=== PATIENT | male | born 1975 | race African-American/Black ===

== ENCOUNTER 2022-01-04 08:15 | Outpatient (CLI) | payer OTHER | END 2022-01-04 08:16 | disposition home or self-care (01) | LOC: CSHWCC 08:15 | PROVIDERS: ATTEND Nurse Practitioner Family | DX: T81.89XD Other complications of procedures, not elsewhere classified, subsequent encounter (principal) ==

== ENCOUNTER 2022-01-07 14:55 | Outpatient (CLI) | payer OTHER | END 2022-01-07 14:56 | disposition home or self-care (01) | LOC: CSHWCC 14:55 | PROVIDERS: ATTEND Nurse Practitioner Family | DX: T81.89XD Other complications of procedures, not elsewhere classified, subsequent encounter (principal) ==

== ENCOUNTER 2022-01-10 14:09 | Outpatient (CLI) | payer OTHER | END 2022-01-10 14:10 | disposition home or self-care (01) | LOC: CSHWCC 14:09 | PROVIDERS: ATTEND Nurse Practitioner Family | DX: T81.89XD Other complications of procedures, not elsewhere classified, subsequent encounter (principal) ==

== ENCOUNTER 2022-01-15 14:05 | Outpatient (CLI) | payer OTHER | END 2022-01-15 14:06 | disposition home or self-care (01) | LOC: CSHWCC 14:05 | PROVIDERS: ATTEND Nurse Practitioner Family | DX: T81.89XD Other complications of procedures, not elsewhere classified, subsequent encounter (principal) | CPT/HCPCS: 97605 ==

== ENCOUNTER 2022-01-18 09:57 | Outpatient (CLI) | payer OTHER | END 2022-01-18 09:58 | disposition home or self-care (01) | LOC: CSHWCC 09:57 | PROVIDERS: ATTEND Nurse Practitioner Family | DX: T81.89XD Other complications of procedures, not elsewhere classified, subsequent encounter (principal) | CPT/HCPCS: 97605 ==

== ENCOUNTER 2022-01-21 10:03 | Outpatient (CLI) | payer OTHER | END 2022-01-21 10:04 | disposition home or self-care (01) | LOC: CSHWCC 10:03 | PROVIDERS: ATTEND Nurse Practitioner Family | DX: T81.89XD Other complications of procedures, not elsewhere classified, subsequent encounter (principal) ==

== ENCOUNTER 2022-01-28 08:24 | Outpatient (CLI) | payer OTHER | END 2022-01-28 08:25 | disposition home or self-care (01) | LOC: CSHWCC 08:24 | PROVIDERS: ATTEND Nurse Practitioner Family | DX: T81.89XD Other complications of procedures, not elsewhere classified, subsequent encounter (principal) | CPT/HCPCS: 99213; G0463 ==

== ENCOUNTER 2022-02-04 08:50 | Outpatient (CLI) | payer OTHER | END 2022-02-04 08:51 | disposition home or self-care (01) | LOC: CSHWCC 08:50 | PROVIDERS: ATTEND Nurse Practitioner Family | DX: T81.89XD Other complications of procedures, not elsewhere classified, subsequent encounter (principal) ==

== ENCOUNTER 2022-02-25 08:57 | Outpatient (CLI) | payer OTHER | END 2022-02-25 08:58 | disposition home or self-care (01) | LOC: CSHWCC 08:57 | PROVIDERS: ATTEND Preventive Medicine Undersea and Hyperbaric Medicine | DX: T81.89XD Other complications of procedures, not elsewhere classified, subsequent encounter (principal) | CPT/HCPCS: 97597; 99212; G0463 ==

== ENCOUNTER 2022-02-28 11:47 | Outpatient (CLI) | payer OTHER | END 2022-02-28 11:48 | disposition home or self-care (01) | LOC: CSHRAD 11:47 | PROVIDERS: ATTEND Preventive Medicine Undersea and Hyperbaric Medicine | DX: T81.89XA Other complications of procedures, not elsewhere classified, initial encounter (principal); M20.62 Acquired deformities of toe(s), unspecified, left foot ==

== ENCOUNTER 2022-03-05 12:54 | Inpatient (IN) | payer OTHER ==
[2022-03-05 14:00] LABS: #Eosinphils 0.1 10x3/uL (0.0-0.5); #Monocytes 0.6 10x3/uL (0.0-1.1); #Neutrophils 4.2 10x3/uL (1.5-8.4); %Basophils 0.3 % (0.0-2.0); %Eosinophils 1.1 % (0.0-6.0); %Lymphocytes 22.7 % (18.0-47.0); %Monocytes 9.4 % (0.0-10.0); Hemoglobin 11.3 g/dL (13.5-17.5); Mean Corpuscular HGB CONC 32.1 g/dL (32.0-36.0); Mean Corpuscular Hemoglobin 26.8 pg (27.0-33.0); Mean Corpuscular Volume 83.6 fl (81.2-95.1); Mean Platelet Volume 9.7 fl (7.4-10.4); Platelet Count 215 10x3/uL (150-450); RBC Distribution Width 12.6 % (11.5-14.5); Red Blood Cell (RBC) Count 4.21 10x6/uL (4.32-5.72); White Blood Cell (WBC) Count 6.4 10x3/uL (3.5-10.5)
[2022-03-05 14:10] LABS: ALT (SGPT) 11 U/L (8-55); AST (SGOT) 10 U/L (5-34); Albumin 3.7 g/dL (3.5-5.0); Alkaline Phosphatase 90 U/L (40-110); Anion Gap 13 mmol/L (10-20); BUN (Urea Nitrogen) 7 mg/dL (8.9-20.6); Bilirubin, Total 1.4 mg/dL (0.2-1.2); Calc. Creatinine Clearance 0 mL/min (70-130); Calcium 9.6 mg/dL (7.8-10.44); Carbon Dioxide 28 mmol/L (22-29); Chloride 101 mmol/L (98-107); Estimated GFR 110; Globulin 3.7 g/dL (2.4-3.5); Glucose 207 mg/dL (70-105); Potassium 3.6 mmol/L (3.5-5.1); Protein, Total 7.4 g/dL (6.0-8.3); Sodium 138 mmol/L (136-145)
[2022-03-05] MEDS ORDERED: Cefepime 2 GM VIAL ONE (15:29)
[2022-03-05 18:28] VITALS: BMI 30.4
[2022-03-05] MEDS ORDERED: Acetaminophen 325 MG TAB PO PRN (18:40)
[2022-03-05] MEDS ORDERED: Ondansetron ODT 4 MG TAB PO PRN (18:40)
[2022-03-05] MEDS ORDERED: HYDROcodone/Acetaminophen 5/325 mg Tablet PO PRN (18:40)
[2022-03-05] MEDS ORDERED: Dextrose 5% in Water 1,000 ML IV PRN (18:53)
[2022-03-05] MEDS ORDERED: HumaLOG 300 UNITS/3 ML VIAL SC PRN (18:53)
[2022-03-05] MEDS ORDERED: Dextrose 50% Abboject 50 ML SYRINGE SLOW IVP PRN (18:53)
[2022-03-05 19:05] LABS: Bilirubin Neg (Negative); Blood, Urine 10 (Negative); Clarity Clear (Clear); Glucose, Urine (Dipstick) Normal (Negative); Ketone, Urine Negative (Negative); Leukocyte Negative (Negative); Nitrite Negative (Negative); Protein, Urine (Dipstick) 15 mg/dl (Neg-Trace); pH, Urine 6.5 (5.0-9.0)
[2022-03-05 19:08] LABS: Urine Culture Reflex No No
[2022-03-05 19:40] LABS: Bacteria/HPF Rare-Few HPF (None Seen); RBC/HPF 0-3 HPF (0-3); Squamous Epithelial 0-3 HPF (0-3); WBC/HPF 0-3 HPF (0-3)
[2022-03-05] MEDS ORDERED: Vancomycin 1 GM in Premix Bag 1 BAG IVPB SCH (23:00)
[2022-03-05] MEDS: Cefepime 2 GM in Sodium Chloride 0.9% 100 ML IVPB SCH (23:16)
[2022-03-05] MEDS: VANCOMYCIN 1.25 GM/250 ML BAG 1.25 GM in Premix Bag 1 BAG IVPB SCH (23:46)
[2022-03-06 05:09] LABS: #Eosinphils 0.1 10x3/uL (0.0-0.5); #Monocytes 0.6 10x3/uL (0.0-1.1); #Neutrophils 3.7 10x3/uL (1.5-8.4); %Basophils 0.4 % (0.0-2.0); %Lymphocytes 21.7 % (18.0-47.0); %Monocytes 10.1 % (0.0-10.0); %Neutrophils 65.6 % (40.0-75.0); Hemoglobin 10.6 g/dL (13.5-17.5); Mean Corpuscular HGB CONC 31.6 g/dL (32.0-36.0); Mean Corpuscular Hemoglobin 26.6 pg (27.0-33.0); Mean Corpuscular Volume 84.2 fl (81.2-95.1); Mean Platelet Volume 10.4 fl (7.4-10.4); Platelet Count 209 10x3/uL (150-450); RBC Distribution Width 12.7 % (11.5-14.5); Red Blood Cell (RBC) Count 3.98 10x6/uL (4.32-5.72); White Blood Cell (WBC) Count 5.6 10x3/uL (3.5-10.5)
[2022-03-06 05:24] LABS: Anion Gap 13 mmol/L (10-20); BUN (Urea Nitrogen) 7 mg/dL (8.9-20.6); Calc. Creatinine Clearance 210 mL/min (70-130); Calcium 8.7 mg/dL (7.8-10.44); Carbon Dioxide 26 mmol/L (22-29); Chloride 103 mmol/L (98-107); Estimated GFR 113; Glucose 196 mg/dL (70-105); Potassium 3.7 mmol/L (3.5-5.1); Sodium 138 mmol/L (136-145)
[2022-03-06] MEDS: VANCOMYCIN 1.25 GM/250 ML BAG 1.25 GM in Premix Bag 1 BAG IVPB SCH (09:06)
[2022-03-06] MEDS: Enoxaparin Sodium 40 MG/0.4 ML SYRINGE SC SCH (09:07)
[2022-03-06] MEDS: Cefepime 2 GM in Sodium Chloride 0.9% 100 ML IVPB SCH ×2 (11:38→22:58)
[2022-03-06] MEDS: HumaLOG 300 UNITS/3 ML VIAL SC PRN (11:41)
[2022-03-06 15:18] LABS: Vancomycin, Trough 10.9 ug/mL
[2022-03-06] MEDS: Vancomycin 1.5 GRAM/300 ML BAG 1.5 GM in Premix Bag 1 BAG IVPB SCH ×2 (16:34→23:57)
[2022-03-07 04:48] LABS: #Eosinphils 0.1 10x3/uL (0.0-0.5); #Monocytes 0.8 10x3/uL (0.0-1.1); #Neutrophils 4.4 10x3/uL (1.5-8.4); %Basophils 0.4 % (0.0-2.0); %Eosinophils 1.5 % (0.0-6.0); %Lymphocytes 28.4 % (18.0-47.0); %Monocytes 10.2 % (0.0-10.0); %Neutrophils 59.2 % (40.0-75.0); Hemoglobin 9.8 g/dL (13.5-17.5); Mean Corpuscular HGB CONC 31.7 g/dL (32.0-36.0); Mean Corpuscular Hemoglobin 26.8 pg (27.0-33.0); Mean Corpuscular Volume 84.7 fl (81.2-95.1); Mean Platelet Volume 10.1 fl (7.4-10.4); Platelet Count 222 10x3/uL (150-450); RBC Distribution Width 12.8 % (11.5-14.5); Red Blood Cell (RBC) Count 3.65 10x6/uL (4.32-5.72); White Blood Cell (WBC) Count 7.5 10x3/uL (3.5-10.5)
[2022-03-07 05:02] LABS: Anion Gap 11 mmol/L (10-20); BUN (Urea Nitrogen) 5 mg/dL (8.9-20.6); Calc. Creatinine Clearance 199 mL/min (70-130); Calcium 9.1 mg/dL (7.8-10.44); Carbon Dioxide 26 mmol/L (22-29); Chloride 102 mmol/L (98-107); Estimated GFR 111; Glucose 172 mg/dL (70-105); Potassium 3.8 mmol/L (3.5-5.1); Sodium 135 mmol/L (136-145)
[2022-03-07] MEDS: HumaLOG 300 UNITS/3 ML VIAL SC PRN ×2 (06:09→11:18)
[2022-03-07] MEDS: Vancomycin 1.5 GRAM/300 ML BAG 1.5 GM in Premix Bag 1 BAG IVPB SCH ×3 (08:35→23:26)
[2022-03-07] MEDS: Enoxaparin Sodium 40 MG/0.4 ML SYRINGE SC SCH (08:42)
[2022-03-07] MEDS: Cefepime 2 GM in Sodium Chloride 0.9% 100 ML IVPB SCH ×2 (11:14→23:20)
[2022-03-07 15:16] LABS: Vancomycin, Trough 15.4 ug/mL
[2022-03-08] MEDS: HumaLOG 300 UNITS/3 ML VIAL SC PRN ×2 (06:04→12:26)
[2022-03-08] MEDS: Enoxaparin Sodium 40 MG/0.4 ML SYRINGE SC SCH (08:48)
[2022-03-08] MEDS: Vancomycin 1.5 GRAM/300 ML BAG 1.5 GM in Premix Bag 1 BAG IVPB SCH ×2 (08:50→15:42)
[2022-03-08] MEDS ORDERED: Lidocaine 1% PF 5 ML VIAL ONE (09:03)
[2022-03-08] MEDS ORDERED: Sodium Bicarbonate 2.5 MEQ/5 ML VIAL ONE (09:04)
[2022-03-08] MEDS: Cefepime 2 GM in Sodium Chloride 0.9% 100 ML IVPB SCH (12:25)
[2022-03-08 15:54] LABS: Vancomycin, Trough 17.1 ug/mL
[2022-03-08 18:09] VITALS: BP 169/86; TEMP 97.4
== END 2022-03-08 18:05 | disposition home or self-care (01) | DRG 549 ==
LOC: CSHERS 12:54 → CSHTELE 17:42
PROVIDERS: ADMIT Hospitalist; ATTEND Hospitalist
PROC: 02HV33Z Insertion of Infusion Device into Superior Vena Cava, Percutaneous Approach (ICD-10-PCS; principal; 2022-03-08)
PROC: B5181ZA Fluoroscopy of Superior Vena Cava using Low Osmolar Contrast, Guidance (ICD-10-PCS; 2022-03-08)
PROC: B548ZZA Ultrasonography of Superior Vena Cava, Guidance (ICD-10-PCS; 2022-03-08)
DX: M00.9 Pyogenic arthritis, unspecified (principal); L03.116 Cellulitis of left lower limb; M86.8X7 Other osteomyelitis, ankle and foot; E11.621 Type 2 diabetes mellitus with foot ulcer; L97.529 Non-pressure chronic ulcer of other part of left foot with unspecified severity; E11.40 Type 2 diabetes mellitus with diabetic neuropathy, unspecified; I10 Essential (primary) hypertension; D64.9 Anemia, unspecified; Z20.822 Contact with and (suspected) exposure to COVID-19; E11.69 Type 2 diabetes mellitus with other specified complication; Z89.422 Acquired absence of other left toe(s); Z98.890 Other specified postprocedural states; Z79.899 Other long term (current) drug therapy
CPT/HCPCS: 36415; 36416; 36569; 80048; 80053; 80202; 81001; 82550; 82565; 83605; 84520; 85025; 87040; 87070; 87077; 87186; 87205; 96365; 96366; 96375; 97139; C1751; J0692; J1650; J1815; J3370; J3490; U0003; U0005

== ENCOUNTER 2022-03-13 08:03 | Outpatient (CLI) | payer OTHER | END 2022-03-13 08:04 | disposition home or self-care (01) | LOC: CSHWCC 08:03 | PROVIDERS: ATTEND Preventive Medicine Undersea and Hyperbaric Medicine | DX: T81.89XD Other complications of procedures, not elsewhere classified, subsequent encounter (principal) | CPT/HCPCS: 99213; G0463 ==

== ENCOUNTER 2022-03-28 15:10 | Outpatient (CLI) | payer OTHER | END 2022-03-28 15:11 | disposition home or self-care (01) | LOC: CSHWCC 15:10 | PROVIDERS: ATTEND Preventive Medicine Undersea and Hyperbaric Medicine | DX: T81.89XD Other complications of procedures, not elsewhere classified, subsequent encounter (principal) | CPT/HCPCS: 99213; G0463 ==

== ENCOUNTER 2022-04-04 11:04 | Outpatient (CLI) | payer OTHER | END 2022-04-04 11:05 | disposition home or self-care (01) | LOC: CSHWCC 11:04 | PROVIDERS: ATTEND Preventive Medicine Undersea and Hyperbaric Medicine | DX: T81.89XD Other complications of procedures, not elsewhere classified, subsequent encounter (principal) | CPT/HCPCS: 97605 ==

== ENCOUNTER 2022-04-08 11:18 | Outpatient (CLI) | payer OTHER | END 2022-04-08 11:19 | disposition home or self-care (01) | LOC: CSHWCC 11:18 | PROVIDERS: ATTEND Preventive Medicine Undersea and Hyperbaric Medicine | DX: T81.89XD Other complications of procedures, not elsewhere classified, subsequent encounter (principal) | CPT/HCPCS: 97605 ==

== ENCOUNTER 2022-04-12 08:38 | Outpatient (CLI) | payer OTHER | END 2022-04-12 08:39 | disposition home or self-care (01) | LOC: CSHWCC 08:38 | PROVIDERS: ATTEND Preventive Medicine Undersea and Hyperbaric Medicine | DX: T81.89XD Other complications of procedures, not elsewhere classified, subsequent encounter (principal); Z89.422 Acquired absence of other left toe(s) | CPT/HCPCS: 97605 ==

== ENCOUNTER 2022-04-15 15:14 | Outpatient (CLI) | payer OTHER | END 2022-04-15 15:15 | disposition home or self-care (01) | LOC: CSHWCC 15:14 | PROVIDERS: ATTEND Preventive Medicine Undersea and Hyperbaric Medicine | DX: T81.89XD Other complications of procedures, not elsewhere classified, subsequent encounter (principal) | CPT/HCPCS: 97605 ==

== ENCOUNTER 2022-04-18 08:01 | Outpatient (CLI) | payer OTHER | END 2022-04-18 08:02 | disposition home or self-care (01) | LOC: CSHWCC 08:01 | PROVIDERS: ATTEND Preventive Medicine Undersea and Hyperbaric Medicine | DX: T81.89XD Other complications of procedures, not elsewhere classified, subsequent encounter (principal); Z89.422 Acquired absence of other left toe(s) ==

== ENCOUNTER 2022-04-22 10:27 | Outpatient (CLI) | payer OTHER | END 2022-04-22 10:28 | disposition home or self-care (01) | LOC: CSHWCC 10:27 | PROVIDERS: ATTEND Nurse Practitioner Family | DX: T81.89XD Other complications of procedures, not elsewhere classified, subsequent encounter (principal); Z89.422 Acquired absence of other left toe(s) | CPT/HCPCS: 97605 ==

== ENCOUNTER 2022-04-25 15:04 | Outpatient (CLI) | payer OTHER | END 2022-04-25 15:05 | disposition home or self-care (01) | LOC: CSHWCC 15:04 | PROVIDERS: ATTEND Nurse Practitioner Family | DX: T81.89XD Other complications of procedures, not elsewhere classified, subsequent encounter (principal) ==

== ENCOUNTER 2022-05-08 09:46 | Outpatient (CLI) | payer OTHER | END 2022-05-08 09:47 | disposition home or self-care (01) | LOC: CSHWCC 09:46 | PROVIDERS: ATTEND Nurse Practitioner Family | DX: T81.89XD Other complications of procedures, not elsewhere classified, subsequent encounter (principal) | CPT/HCPCS: 99213; G0463 ==

== ENCOUNTER 2023-08-27 09:13 | Outpatient (CLI) | payer OTHER | END 2023-08-27 09:14 | disposition home or self-care (01) | LOC: CSHWCC 09:13 | PROVIDERS: ATTEND Nurse Practitioner Family | DX: E11.621 Type 2 diabetes mellitus with foot ulcer (principal); L97.415 Non-pressure chronic ulcer of right heel and midfoot with muscle involvement without evidence of necrosis; L97.525 Non-pressure chronic ulcer of other part of left foot with muscle involvement without evidence of necrosis | CPT/HCPCS: 11042; 99213; G0463 ==

== ENCOUNTER 2023-09-25 15:30 | Outpatient (CLI) | payer OTHER | END 2023-09-25 15:31 | disposition home or self-care (01) | LOC: CSHWCC 15:30 | PROVIDERS: ATTEND Nurse Practitioner Family | DX: T81.32XD Disruption of internal operation (surgical) wound, not elsewhere classified, subsequent encounter (principal); E11.621 Type 2 diabetes mellitus with foot ulcer; L97.414 Non-pressure chronic ulcer of right heel and midfoot with necrosis of bone; L97.525 Non-pressure chronic ulcer of other part of left foot with muscle involvement without evidence of necrosis; M86.171 Other acute osteomyelitis, right ankle and foot | CPT/HCPCS: 11042; 11045; 97606 ==

== ENCOUNTER 2023-09-29 15:29 | Outpatient (CLI) | payer OTHER | END 2023-09-29 15:30 | disposition home or self-care (01) | LOC: CSHWCC 15:29 | PROVIDERS: ATTEND Nurse Practitioner Family | DX: E11.621 Type 2 diabetes mellitus with foot ulcer (principal); L97.414 Non-pressure chronic ulcer of right heel and midfoot with necrosis of bone; T81.32XD Disruption of internal operation (surgical) wound, not elsewhere classified, subsequent encounter; L97.525 Non-pressure chronic ulcer of other part of left foot with muscle involvement without evidence of necrosis; M86.171 Other acute osteomyelitis, right ankle and foot | CPT/HCPCS: 80053; 82550; 85025; 97606 ==

== ENCOUNTER 2023-11-04 11:08 | Outpatient (CLI) | payer OTHER | END 2023-11-04 11:09 | disposition home or self-care (01) | LOC: CSHWCC 11:08 | PROVIDERS: ATTEND Nurse Practitioner Family | DX: E11.621 Type 2 diabetes mellitus with foot ulcer (principal); L97.414 Non-pressure chronic ulcer of right heel and midfoot with necrosis of bone; L97.525 Non-pressure chronic ulcer of other part of left foot with muscle involvement without evidence of necrosis; T81.32XD Disruption of internal operation (surgical) wound, not elsewhere classified, subsequent encounter; M86.171 Other acute osteomyelitis, right ankle and foot | CPT/HCPCS: 11042; 11045 ==

== ENCOUNTER 2023-11-07 10:49 | Outpatient (CLI) | payer OTHER | END 2023-11-07 10:50 | disposition home or self-care (01) | LOC: CSHWCC 10:49 | PROVIDERS: ATTEND Nurse Practitioner Family | DX: T81.32XD Disruption of internal operation (surgical) wound, not elsewhere classified, subsequent encounter (principal); E11.621 Type 2 diabetes mellitus with foot ulcer; L97.414 Non-pressure chronic ulcer of right heel and midfoot with necrosis of bone; L97.525 Non-pressure chronic ulcer of other part of left foot with muscle involvement without evidence of necrosis; M86.171 Other acute osteomyelitis, right ankle and foot | CPT/HCPCS: 29581 ==

== ENCOUNTER 2023-11-17 14:53 | Outpatient (CLI) | payer OTHER | END 2023-11-17 14:54 | disposition home or self-care (01) | LOC: CSHWCC 14:53 | PROVIDERS: ATTEND Nurse Practitioner Family | DX: T81.32XD Disruption of internal operation (surgical) wound, not elsewhere classified, subsequent encounter (principal); E11.621 Type 2 diabetes mellitus with foot ulcer; L97.414 Non-pressure chronic ulcer of right heel and midfoot with necrosis of bone; L97.525 Non-pressure chronic ulcer of other part of left foot with muscle involvement without evidence of necrosis; M86.171 Other acute osteomyelitis, right ankle and foot | CPT/HCPCS: 87070; 87205; 97597; 97598; 99214; G0463 ==

== ENCOUNTER 2023-12-02 15:03 | Outpatient (CLI) | payer OTHER | END 2023-12-02 15:04 | disposition home or self-care (01) | LOC: CSHWCC 15:03 | PROVIDERS: ATTEND Nurse Practitioner Family | DX: T81.32XD Disruption of internal operation (surgical) wound, not elsewhere classified, subsequent encounter (principal); E11.621 Type 2 diabetes mellitus with foot ulcer; L97.414 Non-pressure chronic ulcer of right heel and midfoot with necrosis of bone; L97.525 Non-pressure chronic ulcer of other part of left foot with muscle involvement without evidence of necrosis; M86.171 Other acute osteomyelitis, right ankle and foot | CPT/HCPCS: 11042; 11045 ==

== ENCOUNTER 2023-12-05 11:45 | Outpatient (CLI) | payer OTHER | END 2023-12-05 11:46 | disposition home or self-care (01) | LOC: CSHWCC 11:45 | PROVIDERS: ATTEND Nurse Practitioner Family | DX: T81.32XD Disruption of internal operation (surgical) wound, not elsewhere classified, subsequent encounter (principal); E11.621 Type 2 diabetes mellitus with foot ulcer; L97.414 Non-pressure chronic ulcer of right heel and midfoot with necrosis of bone; L97.525 Non-pressure chronic ulcer of other part of left foot with muscle involvement without evidence of necrosis; M86.171 Other acute osteomyelitis, right ankle and foot | CPT/HCPCS: 29581 ==

== ENCOUNTER 2023-12-12 13:26 | Outpatient (CLI) | payer OTHER | END 2023-12-12 13:27 | disposition home or self-care (01) | LOC: CSHWCC 13:26 | PROVIDERS: ATTEND Nurse Practitioner Family | DX: E11.621 Type 2 diabetes mellitus with foot ulcer (principal); L97.414 Non-pressure chronic ulcer of right heel and midfoot with necrosis of bone; L97.525 Non-pressure chronic ulcer of other part of left foot with muscle involvement without evidence of necrosis; M86.171 Other acute osteomyelitis, right ankle and foot; T81.32XD Disruption of internal operation (surgical) wound, not elsewhere classified, subsequent encounter | CPT/HCPCS: 11042; 11045 ==

== ENCOUNTER 2023-12-15 11:19 | Outpatient (CLI) | payer OTHER | END 2023-12-15 11:20 | disposition home or self-care (01) | LOC: CSHWCC 11:19 | PROVIDERS: ATTEND Nurse Practitioner Family | DX: T81.32XD Disruption of internal operation (surgical) wound, not elsewhere classified, subsequent encounter (principal); E11.621 Type 2 diabetes mellitus with foot ulcer; L97.414 Non-pressure chronic ulcer of right heel and midfoot with necrosis of bone; L97.525 Non-pressure chronic ulcer of other part of left foot with muscle involvement without evidence of necrosis; M86.171 Other acute osteomyelitis, right ankle and foot | CPT/HCPCS: 11042; 11045 ==

== ENCOUNTER 2023-12-18 15:45 | Outpatient (CLI) | payer OTHER | END 2023-12-18 15:46 | disposition home or self-care (01) | LOC: CSHWCC 15:45 | PROVIDERS: ATTEND Preventive Medicine Undersea and Hyperbaric Medicine | DX: T81.32XD Disruption of internal operation (surgical) wound, not elsewhere classified, subsequent encounter (principal); E11.621 Type 2 diabetes mellitus with foot ulcer; L97.414 Non-pressure chronic ulcer of right heel and midfoot with necrosis of bone; L97.525 Non-pressure chronic ulcer of other part of left foot with muscle involvement without evidence of necrosis; M86.171 Other acute osteomyelitis, right ankle and foot ==

== ENCOUNTER 2023-12-18 16:02 | Outpatient (CLI) | payer OTHER | END 2023-12-18 16:03 | disposition home or self-care (01) | LOC: CSHRAD 16:02 | PROVIDERS: ATTEND Preventive Medicine Undersea and Hyperbaric Medicine | DX: E11.621 Type 2 diabetes mellitus with foot ulcer (principal); L97.414 Non-pressure chronic ulcer of right heel and midfoot with necrosis of bone; Z89.421 Acquired absence of other right toe(s); M79.89 Other specified soft tissue disorders; M89.571 Osteolysis, right ankle and foot ==

== ENCOUNTER 2023-12-22 08:32 | Outpatient (CLI) | payer OTHER | END 2023-12-22 08:33 | disposition home or self-care (01) | LOC: CSHWCC 08:32 | PROVIDERS: ATTEND Preventive Medicine Undersea and Hyperbaric Medicine | DX: T81.32XD Disruption of internal operation (surgical) wound, not elsewhere classified, subsequent encounter (principal); E11.621 Type 2 diabetes mellitus with foot ulcer; L97.414 Non-pressure chronic ulcer of right heel and midfoot with necrosis of bone; L97.525 Non-pressure chronic ulcer of other part of left foot with muscle involvement without evidence of necrosis; M86.171 Other acute osteomyelitis, right ankle and foot | CPT/HCPCS: 99215; G0463 ==

== ENCOUNTER 2023-12-22 10:48 | Emergency (ER) | payer OTHER ==
[2023-12-22 11:34] LABS: #Basophils 0.04 10x3/uL (0.0-0.2); #Eosinphils 0.04 10x3/uL (0.0-0.5); #Monocytes 0.48 10x3/uL (0.0-1.1); #Neutrophils 3.91 10x3/uL (1.5-8.4); %Basophils 0.7 % (0.0-2.0); %Eosinophils 0.7 % (0.0-6.0); %Monocytes 7.9 % (0.0-10.0); %Neutrophils 64.4 % (40.0-75.0); Hematocrit 38.8 % (38.8-50.0); Hemoglobin 12.7 g/dL (13.5-17.5); Mean Corpuscular HGB CONC 32.7 g/dL (32.0-36.0); Mean Corpuscular Hemoglobin 28.5 pg (27.0-33.0); Mean Platelet Volume 10.3 fL (7.4-10.4); Platelet Count 251 10x3/uL (150-450); RBC Distribution Width 13.3 % (11.5-14.5); Red Blood Cell (RBC) Count 4.46 10x6/uL (4.32-5.72); White Blood Cell (WBC) Count 6.1 10x3/uL (3.5-10.5)
[2023-12-22 11:54] LABS: ALT (SGPT) 10 U/L (8-55); AST (SGOT) 19 U/L (5-34); Albumin 3.5 g/dL (3.5-5.0); Alkaline Phosphatase 119 U/L (40-110); Anion Gap 11 mmol/L (10-20); BUN (Urea Nitrogen) 11 mg/dL (8.9-20.6); Calc. Creatinine Clearance 0 mL/min (70-130); Calcium 9.3 mg/dL (7.8-10.44); Carbon Dioxide 28 mmol/L (22-29); Chloride 103 mmol/L (98-107); Estimated GFR 88; Globulin 4.6 g/dL (2.4-3.5); Glucose 163 mg/dL (70-105); Potassium 4.1 mmol/L (3.5-5.1); Protein, Total 8.1 g/dL (6.0-8.3); Sodium 138 mmol/L (136-145)
[2023-12-22] MEDS ORDERED: Magnevist 469MG/ML 20 ML VIAL ONE (12:39)
== END 2023-12-22 16:34 | disposition home or self-care (01) ==
LOC: CSHERS 10:48
DX: E11.621 Type 2 diabetes mellitus with foot ulcer (principal); L97.429 Non-pressure chronic ulcer of left heel and midfoot with unspecified severity; L97.419 Non-pressure chronic ulcer of right heel and midfoot with unspecified severity
CPT/HCPCS: 36415; 80053; 83605; 85025; 87040; 87070; 87077; 87186; 87205; A9579

== ENCOUNTER 2023-12-29 11:06 | Outpatient (CLI) | payer OTHER | END 2023-12-29 11:07 | disposition home or self-care (01) | LOC: CSHWCC 11:06 | PROVIDERS: ATTEND Nurse Practitioner Family | DX: T81.32XD Disruption of internal operation (surgical) wound, not elsewhere classified, subsequent encounter (principal); E11.621 Type 2 diabetes mellitus with foot ulcer; L97.414 Non-pressure chronic ulcer of right heel and midfoot with necrosis of bone; L97.525 Non-pressure chronic ulcer of other part of left foot with muscle involvement without evidence of necrosis; M86.171 Other acute osteomyelitis, right ankle and foot ==

== ENCOUNTER 2024-01-05 09:35 | Outpatient (CLI) | payer OTHER | END 2024-01-05 09:36 | disposition home or self-care (01) | LOC: CSHWCC 09:35 | PROVIDERS: ATTEND Nurse Practitioner Family | DX: T81.32XD Disruption of internal operation (surgical) wound, not elsewhere classified, subsequent encounter (principal); E11.621 Type 2 diabetes mellitus with foot ulcer; L97.414 Non-pressure chronic ulcer of right heel and midfoot with necrosis of bone; L97.525 Non-pressure chronic ulcer of other part of left foot with muscle involvement without evidence of necrosis; M86.171 Other acute osteomyelitis, right ankle and foot | CPT/HCPCS: 87070; 87077; 87186; 87205 ==

== ENCOUNTER 2024-01-12 10:59 | Outpatient (CLI) | payer OTHER | END 2024-01-12 11:00 | disposition home or self-care (01) | LOC: CSHWCC 10:59 | PROVIDERS: ATTEND Nurse Practitioner Family | DX: T81.32XD Disruption of internal operation (surgical) wound, not elsewhere classified, subsequent encounter (principal); E11.621 Type 2 diabetes mellitus with foot ulcer; L97.414 Non-pressure chronic ulcer of right heel and midfoot with necrosis of bone; L97.525 Non-pressure chronic ulcer of other part of left foot with muscle involvement without evidence of necrosis; M86.171 Other acute osteomyelitis, right ankle and foot | CPT/HCPCS: 11042; 11044 ==

== ENCOUNTER 2024-01-19 15:42 | Outpatient (CLI) | payer OTHER | END 2024-01-19 15:43 | disposition home or self-care (01) | LOC: CSHWCC 15:42 | PROVIDERS: ATTEND Family Medicine | DX: T81.32XD Disruption of internal operation (surgical) wound, not elsewhere classified, subsequent encounter (principal); E11.621 Type 2 diabetes mellitus with foot ulcer; L97.414 Non-pressure chronic ulcer of right heel and midfoot with necrosis of bone; L97.525 Non-pressure chronic ulcer of other part of left foot with muscle involvement without evidence of necrosis; M86.171 Other acute osteomyelitis, right ankle and foot | CPT/HCPCS: 97597; 97598; 99213; G0463 ==

== ENCOUNTER 2024-01-26 16:03 | Outpatient (CLI) | payer OTHER | END 2024-01-26 16:04 | disposition home or self-care (01) | LOC: CSHWCC 16:03 | PROVIDERS: ATTEND Nurse Practitioner Family | DX: T81.32XD Disruption of internal operation (surgical) wound, not elsewhere classified, subsequent encounter (principal); E11.621 Type 2 diabetes mellitus with foot ulcer; L97.414 Non-pressure chronic ulcer of right heel and midfoot with necrosis of bone; L97.525 Non-pressure chronic ulcer of other part of left foot with muscle involvement without evidence of necrosis; M86.171 Other acute osteomyelitis, right ankle and foot | CPT/HCPCS: 11042; 11045 ==

== ENCOUNTER 2024-03-22 10:52 | Outpatient (CLI) | payer OTHER | END 2024-03-22 10:53 | disposition home or self-care (01) | LOC: CSHWCC 10:52 | PROVIDERS: ATTEND Nurse Practitioner Family | DX: E11.621 Type 2 diabetes mellitus with foot ulcer (principal); L97.512 Non-pressure chronic ulcer of other part of right foot with fat layer exposed; L97.522 Non-pressure chronic ulcer of other part of left foot with fat layer exposed; M86.171 Other acute osteomyelitis, right ankle and foot; M14.671 Charcot's joint, right ankle and foot | CPT/HCPCS: 11042; 11045; 97597 ==

== ENCOUNTER 2024-04-05 13:07 | Outpatient (CLI) | payer OTHER | END 2024-04-05 13:08 | disposition home or self-care (01) | LOC: CSHWCC 13:07 | PROVIDERS: ATTEND Nurse Practitioner Family | DX: E11.621 Type 2 diabetes mellitus with foot ulcer (principal); M86.171 Other acute osteomyelitis, right ankle and foot; L97.512 Non-pressure chronic ulcer of other part of right foot with fat layer exposed; L97.522 Non-pressure chronic ulcer of other part of left foot with fat layer exposed; M14.671 Charcot's joint, right ankle and foot | CPT/HCPCS: 11042; 11045 ==

== ENCOUNTER 2024-04-12 13:15 | Outpatient (CLI) | payer OTHER | END 2024-04-12 13:16 | disposition home or self-care (01) | LOC: CSHWCC 13:15 | PROVIDERS: ATTEND Nurse Practitioner Family | DX: E11.621 Type 2 diabetes mellitus with foot ulcer (principal); L97.512 Non-pressure chronic ulcer of other part of right foot with fat layer exposed; M86.171 Other acute osteomyelitis, right ankle and foot; M14.671 Charcot's joint, right ankle and foot | CPT/HCPCS: 11042; 11045 ==

== ENCOUNTER 2024-04-26 10:22 | Outpatient (CLI) | payer OTHER | END 2024-04-26 10:23 | disposition home or self-care (01) | LOC: CSHWCC 10:22 | PROVIDERS: ATTEND Nurse Practitioner Family | DX: E11.621 Type 2 diabetes mellitus with foot ulcer (principal); L97.512 Non-pressure chronic ulcer of other part of right foot with fat layer exposed; M86.171 Other acute osteomyelitis, right ankle and foot; M14.671 Charcot's joint, right ankle and foot | CPT/HCPCS: 11042 ==

== ENCOUNTER 2024-05-03 12:05 | Outpatient (CLI) | payer OTHER | END 2024-05-03 12:06 | disposition home or self-care (01) | LOC: CSHWCC 12:05 | PROVIDERS: ATTEND Nurse Practitioner Family | DX: E11.621 Type 2 diabetes mellitus with foot ulcer (principal); L97.512 Non-pressure chronic ulcer of other part of right foot with fat layer exposed; M86.171 Other acute osteomyelitis, right ankle and foot; M14.671 Charcot's joint, right ankle and foot | CPT/HCPCS: 11042; 11045 ==

== ENCOUNTER 2024-05-10 10:01 | Outpatient (CLI) | payer OTHER | END 2024-05-10 10:02 | disposition home or self-care (01) | LOC: CSHWCC 10:01 | PROVIDERS: ATTEND Nurse Practitioner Family | DX: E11.621 Type 2 diabetes mellitus with foot ulcer (principal); L97.512 Non-pressure chronic ulcer of other part of right foot with fat layer exposed; M86.171 Other acute osteomyelitis, right ankle and foot; M14.671 Charcot's joint, right ankle and foot | CPT/HCPCS: 11042; 11045; 99212; G0463 ==

== ENCOUNTER 2024-05-12 08:48 | Outpatient (CLI) | payer OTHER | END 2024-05-12 08:49 | disposition home or self-care (01) | LOC: CSHWCC 08:48 | PROVIDERS: ATTEND Nurse Practitioner Family | DX: E11.621 Type 2 diabetes mellitus with foot ulcer (principal); L97.512 Non-pressure chronic ulcer of other part of right foot with fat layer exposed; M86.171 Other acute osteomyelitis, right ankle and foot; M14.671 Charcot's joint, right ankle and foot | CPT/HCPCS: 29581 ==

== ENCOUNTER 2024-05-17 09:47 | Outpatient (CLI) | payer OTHER | END 2024-05-17 09:48 | disposition home or self-care (01) | LOC: CSHWCC 09:47 | PROVIDERS: ATTEND Nurse Practitioner Family | DX: E11.621 Type 2 diabetes mellitus with foot ulcer (principal); L97.512 Non-pressure chronic ulcer of other part of right foot with fat layer exposed; M14.671 Charcot's joint, right ankle and foot; M86.171 Other acute osteomyelitis, right ankle and foot | CPT/HCPCS: 11042; 11045; 99212; G0463 ==

== ENCOUNTER 2024-05-21 08:16 | Outpatient (CLI) | payer OTHER | END 2024-05-21 08:17 | disposition home or self-care (01) | LOC: CSHWCC 08:16 | PROVIDERS: ATTEND Nurse Practitioner Family | DX: I87.311 Chronic venous hypertension (idiopathic) with ulcer of right lower extremity (principal); E11.621 Type 2 diabetes mellitus with foot ulcer; L97.512 Non-pressure chronic ulcer of other part of right foot with fat layer exposed; M86.171 Other acute osteomyelitis, right ankle and foot; M14.671 Charcot's joint, right ankle and foot | CPT/HCPCS: 29445 ==

== ENCOUNTER 2024-05-24 09:15 | Outpatient (CLI) | payer OTHER | END 2024-05-24 09:16 | disposition home or self-care (01) | LOC: CSHWCC 09:15 | PROVIDERS: ATTEND Nurse Practitioner Family | DX: I87.311 Chronic venous hypertension (idiopathic) with ulcer of right lower extremity (principal); E11.621 Type 2 diabetes mellitus with foot ulcer; L97.512 Non-pressure chronic ulcer of other part of right foot with fat layer exposed; M86.171 Other acute osteomyelitis, right ankle and foot; M14.671 Charcot's joint, right ankle and foot | CPT/HCPCS: 11042 ==

== ENCOUNTER 2024-05-28 08:23 | Outpatient (CLI) | payer OTHER | END 2024-05-28 08:24 | disposition home or self-care (01) | LOC: CSHWCC 08:23 | PROVIDERS: ATTEND Nurse Practitioner Family | DX: I87.311 Chronic venous hypertension (idiopathic) with ulcer of right lower extremity (principal); E11.621 Type 2 diabetes mellitus with foot ulcer; L97.512 Non-pressure chronic ulcer of other part of right foot with fat layer exposed; M86.171 Other acute osteomyelitis, right ankle and foot; M14.671 Charcot's joint, right ankle and foot | CPT/HCPCS: 29445; 99212; G0463 ==

== ENCOUNTER 2024-05-31 13:43 | Outpatient (CLI) | payer OTHER | END 2024-05-31 13:44 | disposition home or self-care (01) | LOC: CSHWCC 13:43 | PROVIDERS: ATTEND Nurse Practitioner Family | DX: I87.311 Chronic venous hypertension (idiopathic) with ulcer of right lower extremity (principal); E11.621 Type 2 diabetes mellitus with foot ulcer; L97.512 Non-pressure chronic ulcer of other part of right foot with fat layer exposed; M86.171 Other acute osteomyelitis, right ankle and foot; M14.671 Charcot's joint, right ankle and foot | CPT/HCPCS: 11042 ==

== ENCOUNTER 2024-06-03 08:32 | Outpatient (CLI) | payer OTHER | END 2024-06-03 08:33 | disposition home or self-care (01) | LOC: CSHWCC 08:32 | PROVIDERS: ATTEND Family Medicine | DX: I87.311 Chronic venous hypertension (idiopathic) with ulcer of right lower extremity (principal); E11.621 Type 2 diabetes mellitus with foot ulcer; L97.512 Non-pressure chronic ulcer of other part of right foot with fat layer exposed; M86.171 Other acute osteomyelitis, right ankle and foot; M14.671 Charcot's joint, right ankle and foot | CPT/HCPCS: 11042 ==

== ENCOUNTER 2024-06-07 15:34 | Outpatient (CLI) | payer OTHER | END 2024-06-07 15:35 | disposition home or self-care (01) | LOC: CSHWCC 15:34 | PROVIDERS: ATTEND Family Medicine | DX: I87.311 Chronic venous hypertension (idiopathic) with ulcer of right lower extremity (principal); L97.512 Non-pressure chronic ulcer of other part of right foot with fat layer exposed; E11.621 Type 2 diabetes mellitus with foot ulcer; M86.171 Other acute osteomyelitis, right ankle and foot; M14.671 Charcot's joint, right ankle and foot | CPT/HCPCS: 11042 ==

== ENCOUNTER 2024-06-10 11:20 | Outpatient (CLI) | payer OTHER | END 2024-06-10 11:21 | disposition home or self-care (01) | LOC: CSHWCC 11:20 | PROVIDERS: ATTEND Nurse Practitioner Family | DX: I87.311 Chronic venous hypertension (idiopathic) with ulcer of right lower extremity (principal); E11.621 Type 2 diabetes mellitus with foot ulcer; L97.512 Non-pressure chronic ulcer of other part of right foot with fat layer exposed; M86.171 Other acute osteomyelitis, right ankle and foot; M14.671 Charcot's joint, right ankle and foot | CPT/HCPCS: 29445 ==

== ENCOUNTER 2024-06-14 09:59 | Outpatient (CLI) | payer OTHER | END 2024-06-14 10:00 | disposition home or self-care (01) | LOC: CSHWCC 09:59 | PROVIDERS: ATTEND Nurse Practitioner Family | DX: I87.311 Chronic venous hypertension (idiopathic) with ulcer of right lower extremity (principal); E11.621 Type 2 diabetes mellitus with foot ulcer; L97.512 Non-pressure chronic ulcer of other part of right foot with fat layer exposed; M86.171 Other acute osteomyelitis, right ankle and foot; M14.671 Charcot's joint, right ankle and foot | CPT/HCPCS: 11042 ==

== ENCOUNTER 2024-06-17 11:07 | Outpatient (CLI) | payer OTHER | END 2024-06-17 11:08 | disposition home or self-care (01) | LOC: CSHWCC 11:07 | PROVIDERS: ATTEND Nurse Practitioner Family | DX: E11.621 Type 2 diabetes mellitus with foot ulcer (principal); L97.512 Non-pressure chronic ulcer of other part of right foot with fat layer exposed; I87.311 Chronic venous hypertension (idiopathic) with ulcer of right lower extremity; E11.69 Type 2 diabetes mellitus with other specified complication; M86.171 Other acute osteomyelitis, right ankle and foot; M14.671 Charcot's joint, right ankle and foot | CPT/HCPCS: 29445; 99212; G0463 ==

== ENCOUNTER 2024-06-21 16:01 | Outpatient (CLI) | payer OTHER | END 2024-06-21 16:02 | disposition home or self-care (01) | LOC: CSHWCC 16:01 | PROVIDERS: ATTEND Nurse Practitioner Family | DX: M86.9 Osteomyelitis, unspecified (principal) | CPT/HCPCS: 11042 ==

== ENCOUNTER 2024-06-24 09:36 | Outpatient (CLI) | payer OTHER | END 2024-06-24 09:37 | disposition home or self-care (01) | LOC: CSHWCC 09:36 | PROVIDERS: ATTEND Nurse Practitioner Family | DX: I87.311 Chronic venous hypertension (idiopathic) with ulcer of right lower extremity (principal); E11.621 Type 2 diabetes mellitus with foot ulcer; L97.512 Non-pressure chronic ulcer of other part of right foot with fat layer exposed; M86.171 Other acute osteomyelitis, right ankle and foot; M14.671 Charcot's joint, right ankle and foot | CPT/HCPCS: 29445 ==

== ENCOUNTER 2024-06-28 09:37 | Outpatient (CLI) | payer OTHER | END 2024-06-28 09:38 | disposition home or self-care (01) | LOC: CSHWCC 09:37 | PROVIDERS: ATTEND Nurse Practitioner Family | DX: I87.311 Chronic venous hypertension (idiopathic) with ulcer of right lower extremity (principal); E11.621 Type 2 diabetes mellitus with foot ulcer; L97.512 Non-pressure chronic ulcer of other part of right foot with fat layer exposed; M86.171 Other acute osteomyelitis, right ankle and foot; M14.671 Charcot's joint, right ankle and foot | CPT/HCPCS: 11042 ==

== ENCOUNTER 2024-07-05 08:48 | Outpatient (CLI) | payer OTHER | END 2024-07-05 08:49 | disposition home or self-care (01) | LOC: CSHWCC 08:48 | PROVIDERS: ATTEND Nurse Practitioner Family | DX: I87.311 Chronic venous hypertension (idiopathic) with ulcer of right lower extremity (principal); E11.621 Type 2 diabetes mellitus with foot ulcer; L97.512 Non-pressure chronic ulcer of other part of right foot with fat layer exposed; M86.171 Other acute osteomyelitis, right ankle and foot; M14.671 Charcot's joint, right ankle and foot | CPT/HCPCS: 11042 ==

== ENCOUNTER 2024-07-12 09:27 | Outpatient (CLI) | payer OTHER | END 2024-07-12 09:28 | disposition home or self-care (01) | LOC: CSHWCC 09:27 | PROVIDERS: ATTEND Nurse Practitioner Family | DX: I87.311 Chronic venous hypertension (idiopathic) with ulcer of right lower extremity (principal); L97.512 Non-pressure chronic ulcer of other part of right foot with fat layer exposed; E11.621 Type 2 diabetes mellitus with foot ulcer; M86.171 Other acute osteomyelitis, right ankle and foot; M14.671 Charcot's joint, right ankle and foot | CPT/HCPCS: 11042; 99212; G0463 ==

== ENCOUNTER 2024-07-19 10:43 | Outpatient (CLI) | payer OTHER | END 2024-07-19 10:44 | disposition home or self-care (01) | LOC: CSHRAD 10:43 | PROVIDERS: ATTEND Nurse Practitioner Family | DX: E11.621 Type 2 diabetes mellitus with foot ulcer (principal); L97.512 Non-pressure chronic ulcer of other part of right foot with fat layer exposed; I87.311 Chronic venous hypertension (idiopathic) with ulcer of right lower extremity; M86.171 Other acute osteomyelitis, right ankle and foot; M14.671 Charcot's joint, right ankle and foot; M86.671 Other chronic osteomyelitis, right ankle and foot ==

== ENCOUNTER 2024-07-22 10:32 | Outpatient (CLI) | payer OTHER | END 2024-07-22 10:33 | disposition home or self-care (01) | LOC: CSHWCC 10:32 | PROVIDERS: ATTEND Nurse Practitioner Family | DX: I87.311 Chronic venous hypertension (idiopathic) with ulcer of right lower extremity (principal); E11.621 Type 2 diabetes mellitus with foot ulcer; L97.512 Non-pressure chronic ulcer of other part of right foot with fat layer exposed; M86.171 Other acute osteomyelitis, right ankle and foot; M14.671 Charcot's joint, right ankle and foot | CPT/HCPCS: 29445; 99214; G0463 ==

== ENCOUNTER 2024-07-26 10:20 | Outpatient (CLI) | payer OTHER | END 2024-07-26 10:21 | disposition home or self-care (01) | LOC: CSHWCC 10:20 | PROVIDERS: ATTEND Nurse Practitioner Family | DX: E11.621 Type 2 diabetes mellitus with foot ulcer (principal); L97.512 Non-pressure chronic ulcer of other part of right foot with fat layer exposed; I87.311 Chronic venous hypertension (idiopathic) with ulcer of right lower extremity; M86.171 Other acute osteomyelitis, right ankle and foot; M14.671 Charcot's joint, right ankle and foot | CPT/HCPCS: 11042; 99212; G0463 ==

== ENCOUNTER 2024-08-03 09:20 | Outpatient (CLI) | payer OTHER | END 2024-08-03 09:21 | disposition home or self-care (01) | LOC: CSHWCC 09:20 | PROVIDERS: ATTEND Nurse Practitioner Family | DX: I87.311 Chronic venous hypertension (idiopathic) with ulcer of right lower extremity (principal); E11.621 Type 2 diabetes mellitus with foot ulcer; L97.512 Non-pressure chronic ulcer of other part of right foot with fat layer exposed; M86.171 Other acute osteomyelitis, right ankle and foot; M14.671 Charcot's joint, right ankle and foot | CPT/HCPCS: 11042 ==

== ENCOUNTER 2024-08-06 09:44 | Outpatient (CLI) | payer OTHER | END 2024-08-06 09:45 | disposition home or self-care (01) | LOC: CSHWCC 09:44 | PROVIDERS: ATTEND Nurse Practitioner Family | DX: E11.621 Type 2 diabetes mellitus with foot ulcer (principal); L97.512 Non-pressure chronic ulcer of other part of right foot with fat layer exposed; I87.311 Chronic venous hypertension (idiopathic) with ulcer of right lower extremity; M86.171 Other acute osteomyelitis, right ankle and foot; M14.671 Charcot's joint, right ankle and foot | CPT/HCPCS: 29445 ==

== ENCOUNTER 2024-08-10 13:02 | Outpatient (CLI) | payer OTHER | END 2024-08-10 13:03 | disposition home or self-care (01) | LOC: CSHWCC 13:02 | PROVIDERS: ATTEND Nurse Practitioner Family | DX: I87.311 Chronic venous hypertension (idiopathic) with ulcer of right lower extremity (principal); E11.621 Type 2 diabetes mellitus with foot ulcer; L97.512 Non-pressure chronic ulcer of other part of right foot with fat layer exposed; M86.171 Other acute osteomyelitis, right ankle and foot; M14.671 Charcot's joint, right ankle and foot | CPT/HCPCS: 11042 ==

== ENCOUNTER 2024-08-23 10:16 | Outpatient (CLI) | payer OTHER | END 2024-08-23 10:17 | disposition home or self-care (01) | LOC: CSHWCC 10:16 | PROVIDERS: ATTEND Nurse Practitioner Family | DX: I87.311 Chronic venous hypertension (idiopathic) with ulcer of right lower extremity (principal); E11.621 Type 2 diabetes mellitus with foot ulcer; L97.512 Non-pressure chronic ulcer of other part of right foot with fat layer exposed; M86.171 Other acute osteomyelitis, right ankle and foot; M14.671 Charcot's joint, right ankle and foot | CPT/HCPCS: 11042 ==

== ENCOUNTER 2024-12-27 12:48 | Outpatient (CLI) | payer OTHER | END 2024-12-27 12:49 | disposition home or self-care (01) | LOC: CSHWCC 12:48 | PROVIDERS: ATTEND Nurse Practitioner Family | DX: I87.311 Chronic venous hypertension (idiopathic) with ulcer of right lower extremity (principal); E11.621 Type 2 diabetes mellitus with foot ulcer; L97.512 Non-pressure chronic ulcer of other part of right foot with fat layer exposed; L97.312 Non-pressure chronic ulcer of right ankle with fat layer exposed; M86.171 Other acute osteomyelitis, right ankle and foot; M14.671 Charcot's joint, right ankle and foot | CPT/HCPCS: 97605; 99213; G0463 ==